=== PATIENT | female | born 1965 | race Caucasian/White ===

== ENCOUNTER 2018-04-23 07:31 | Day surgery (SDC) | payer OTHER | END 2018-04-23 12:50 | disposition home or self-care (01) | LOC: AMB-ENDOS 07:31 | DX: D12.2 Benign neoplasm of ascending colon (principal); K64.8 Other hemorrhoids; Z12.12 Encounter for screening for malignant neoplasm of rectum; Z12.11 Encounter for screening for malignant neoplasm of colon ==